=== PATIENT | female | born 1935 | race Caucasian/White ===

== ENCOUNTER 2016-07-28 14:31 | Emergency (ER) | payer MEDICARE ==
[2016-07-28] MEDS ORDERED: IOPAMIDOL 300 (61%) 150 ML VIAL IV ONE (14:32)
[2016-07-28] MEDS ORDERED: FENTANYL 100 MCG/2 ML VIAL ONE (15:08)
[2016-07-28] MEDS ORDERED: LACTATED RINGERS 1,000 ML ONE (15:09)
[2016-07-28] MEDS ORDERED: ONDANSETRON 4 MG/2ML 2 ML VIAL ONE (15:09)
[2016-07-28] MEDS ORDERED: ASPIRIN CHEWTAB 81 MG TABLET ONE (15:25)
[2016-07-28 15:27] LABS: ABSOLUTE NEUTROPHIL COUNT 5.9 K/mm3 (1.8-7.7); BASO % 0.4 % (0.2-1.0); EOS # 0.1 (0.0-0.5); EOS % 1.3 % (0.9-2.9); HEMATOCRIT 44.9 % (37.0-47.0); HEMOGLOBIN 14.9 gm/l (12.0-16.0); IMM NEUT% 0.4 % (0-1); LYMPH # 1.6 (1.0-4.8); LYMPH % 19.4 % (15-45); MEAN CELL VOLUME 86.7 fl (81.0-99.0); MEAN CORPUSCULAR HEMOGLOBIN 28.8 pg (27.0-31.0); MEAN CORPUSCULAR HGB CONC 33.2 g/dl (33.0-37.0); MEAN PLATELET VOLUME 10.3 fl (7.4-10.4); MONO # 0.8 (0.0-0.8); NEUT % 69.5 % (43-75); PLATELET COUNT 236 K/mm3 (130-400); RED CELL DISTRIBUTION WIDTH 13.2 % (11.5-14.5)
[2016-07-28 15:52] LABS: ALB/GLOB RATIO 1.1 (>1.0); ALBUMIN 3.5 gm/dL (3.5-5.7); CALCIUM 9.7 mg/dL (8.6-10.3)
--- NOTE | 2016-07-28 16:57 | CT ---
Exam: CT abdomen and pelvis with contrast COMPARISON: 10/14/2014, 01/22/2014 INDICATION: Right lower quadrant pain that radiates into her left side. TECHNIQUE: CT examination of the abdomen and pelvis was obtained following the administration of 125 mL Isovue-300 intravenous contrast. FINDINGS: Pronounced pancolonic diverticulosis is again appreciated. There is relative short segment wall thickening involving the sigmoid colon, and a slightly different location than that seen on the 2015 exam. Asymmetric thickening and a small amount of fluid within the deep left pelvis along the peritoneal reflection was present previously but slightly increased. Tiny lymph nodes are noted in this location, more significant for number rather than size, as annotated on coronal reformations 40 of 68. These are stable. There is now some inflammatory change in fluid in the precoccygeal space which is new. There is no well-defined fluid collection to suggest abscess formation. There is no free intraperitoneal air. 4.3 cm simple left adnexal cyst is noted and stable since 2013. There is no right adnexal mass. The uterus is absent. Urinary bladder is unremarkable. The appendix is not definitively visualized. There are no secondary findings of acute appendicitis. Diastases rectus and several small fat-containing anterior abdominal hernias are seen about the umbilicus. Mild hepatic steatosis. Gallbladder is present and unremarkable. Pancreas within normal limits. Spleen is normal in size there is no adrenal mass. Kidneys within normal limits. Atheromatous but nonaneurysmal abdominal aorta and iliac arteries. Moderate hiatal hernia is again noted. Lung bases are clear. There is exaggeration of the normal lumbar lordosis with facet arthropathy. There is no worrisome lytic or blastic osseous lesion. IMPRESSION: Since the 10/14/2014 exam, there has been interval development of inflammatory fat stranding as well as the trace amount of fluid within the precoccygeal space. A small amount of increase in fluid and thickening along the peritoneal reflection on the left, present previously but increased. There is mild relative wall thickening of the sigmoid colon in this vicinity where there is underlying diverticulosis. Favor this is likely sequelae of subacute or chronic diverticulitis. There is no evidence of abscess formation, bowel obstruction or free air. Ensure patient is up-to-date with colonoscopy screening recommendations. Findings were discussed with Dr. Gastelum at 1653 hours 07/28/2016.
== END 2016-07-28 19:02 | disposition home or self-care (01) ==
LOC: ED 14:31
DX: R10.31 Right lower quadrant pain (principal); R07.9 Chest pain, unspecified; I10 Essential (primary) hypertension; R11.2 Nausea with vomiting, unspecified
CPT/HCPCS: 83605; 83690; 85025; 80053; 84484 ×2; 74177; 96375; 99284 ×2; 96374; 96361; 93005; A9270; J3010; J2405; J7120; Q9967